=== PATIENT | female | born 1960 | race African-American/Black ===

== ENCOUNTER 2020-04-06 18:40 | Emergency (ER) | payer SELFPAY ==
[2020-04-06 19:42] LABS: #Basophils 0.1 thou/uL (0.0-0.2); #Monocytes 0.1 thou/uL (0.11-0.59); #Neutrophils 5.6 thou/uL (1.40-6.50); %Basophils 0.7 % (0.0-1.0); %Eosinophils 0.2 % (0.0-10.0); %Lymphocytes 14.3 % (21.0-51.0); %Monocytes 2.1 % (0.0-10.0); %Neutrophils 82.7 % (42.0-75.0); Mean Corpuscular HGB CONC 35.5 g/dL (32.0-36.0); Mean Corpuscular Hemoglobin 33.9 pg (27.0-31.0); Mean Corpuscular Volume 95.8 fL (78.0-98.0); Mean Platelet Volume 8.1 fL (7.4-10.4); Platelet Count 300 thou/uL (130-400); RBC Distribution Width 10.8 % (11.5-14.5); Red Blood Cell (RBC) Count 4.12 mill/uL (4.20-5.40); White Blood Cell (WBC) Count 6.7 thou/uL (4.8-10.8)
[2020-04-06 20:06] LABS: ALT (SGPT) 18 U/L (8-55); AST (SGOT) 25 U/L (5-34); Albumin 4.6 g/dL (3.5-5.0); Alkaline Phosphatase 107 U/L (40-110); Anion Gap 14 mmol/L (10-20); BUN (Urea Nitrogen) 26 mg/dL (9.8-20.1); Bilirubin, Total 0.4 mg/dL (0.2-1.2); Calc. Creatinine Clearance 0 mL/min (70-130); Calcium 9.6 mg/dL (7.8-10.44); Carbon Dioxide 26 mmol/L (22-29); Chloride 100 mmol/L (98-107); Estimated GFR-MDRD 50; Globulin 3.8 g/dL (2.4-3.5); Glucose 139 mg/dL (70-105); Potassium 4.2 mmol/L (3.5-5.1); Protein, Total 8.4 g/dL (6.0-8.3); Sodium 136 mmol/L (136-145)
[2020-04-06 20:09] LABS: CK (CPK) 46 U/L (29-168); Lipase 29 U/L (8-78)
--- NOTE | 2020-04-06 20:16 | RAD ---
Chest AP view INDICATION: Chest pain COMPARISON: None FINDINGS: Lungs: The lungs are clear Cardiac silhouette: The cardiomediastinal silhouette appears within normal limits. Pulmonary vasculature: Normal Pleural spaces: No pleural effusion or pneumothorax is demonstrated. Upper abdomen: No abnormality seen. Osseous structures: There is vertebroplasty change at suspected L2 vertebral level. There is diffuse osteopenia. No definite acute osseous abnormality is demonstrated. Additional findings: None. IMPRESSION: No acute cardiopulmonary abnormality.
[2020-04-06 20:51] LABS: Bacteria/HPF None Seen HPF (None Seen); Bilirubin Negative (Negative); Blood, Urine Negative (Negative); Clarity Clear (Clear); Glucose, Urine (Dipstick) Normal (Negative); Ketone, Urine Negative (Negative); Leukocyte 75 Leu/uL (Negative); Nitrite Negative (Negative); Protein, Urine (Dipstick) Negative (Neg-Trace); RBC/HPF 0-3 HPF (0-3); Renal Epithelial 0-3 HPF (None Seen); Specific Gravity, Urine 1.021 (1.002-1.036); Squamous Epithelial 0-3 HPF (0-3); Urobilinogen Normal mg/dL (Less than 2); pH, Urine 5.5 (5.0-9.0)
[2020-04-06] MEDS ORDERED: Ondansetron PF 4 MG/2 ML Vial ONE (21:06)
[2020-04-06] MEDS ORDERED: Morphine 4 MG/ML VIAL ONE (21:06)
[2020-04-06] MEDS ORDERED: Lorazepam 2 MG/ML VIAL ONE (21:45)
== END 2020-04-06 22:28 | disposition home or self-care (01) ==
LOC: ERS 18:40
DX: M94.0 Chondrocostal junction syndrome [Tietze] (principal); F41.9 Anxiety disorder, unspecified; N39.0 Urinary tract infection, site not specified; I10 Essential (primary) hypertension; E03.9 Hypothyroidism, unspecified; Z79.899 Other long term (current) drug therapy
CPT/HCPCS: 36415; 71045; 80053; 81003; 81015; 82550; 83690; 84484; 85025; 85379; 93005; 96374; 96375; J2060; J2270; J2405